=== PATIENT | male | born 1990 | race Caucasian/White ===

== ENCOUNTER 2018-06-11 17:21 | Emergency (ER) | payer OTHER | END 2018-06-11 19:28 | disposition home or self-care (01) | LOC: M ED 17:21 | DX: K08.89 Other specified disorders of teeth and supporting structures (principal); M54.9 Dorsalgia, unspecified; F42.9 Obsessive-compulsive disorder, unspecified; F17.210 Nicotine dependence, cigarettes, uncomplicated; Z88.2 Allergy status to sulfonamides; Z79.899 Other long term (current) drug therapy; Z79.2 Long term (current) use of antibiotics | CPT/HCPCS: 99283 ==

== ENCOUNTER 2018-07-13 10:10 | Emergency (ER) | payer OTHER | END 2018-07-13 11:21 | disposition home or self-care (01) | LOC: M ED 10:10 | DX: K02.9 Dental caries, unspecified (principal); F17.200 Nicotine dependence, unspecified, uncomplicated | CPT/HCPCS: 99283 ==

== ENCOUNTER 2018-07-18 16:56 | Emergency (ER) | payer OTHER | END 2018-07-18 17:44 | disposition home or self-care (01) | LOC: M ED 16:56 | DX: K08.89 Other specified disorders of teeth and supporting structures (principal); Z88.1 Allergy status to other antibiotic agents; Z88.2 Allergy status to sulfonamides; F17.210 Nicotine dependence, cigarettes, uncomplicated | CPT/HCPCS: 99282 ==

== ENCOUNTER 2018-08-10 10:57 | Emergency (ER) | payer OTHER | END 2018-08-10 13:23 | disposition home or self-care (01) | LOC: M ED 10:57 | DX: K08.89 Other specified disorders of teeth and supporting structures (principal); K02.9 Dental caries, unspecified; R68.84 Jaw pain; F17.200 Nicotine dependence, unspecified, uncomplicated; G89.29 Other chronic pain; Z88.2 Allergy status to sulfonamides; Z79.899 Other long term (current) drug therapy | CPT/HCPCS: 99283 ==

== ENCOUNTER → 2018-08-21 | Outpatient (CLI) | payer OTHER | LOC: M RAD 13:21 | DX: M51.36 Other intervertebral disc degeneration, lumbar region (principal); R93.7 Abnormal findings on diagnostic imaging of other parts of musculoskeletal system | CPT/HCPCS: 72148 ==

== ENCOUNTER 2019-04-14 11:38 | Emergency (ER) | payer OTHER ==
[~2019-04-14] VITALS: Ht 185.4 cm; Wt 77.9 kg
[2019-04-14 11:38] VITALS: BP 133/75
[~2019-04-14 11:38] MED LIST: ALPR0.5T3; AMOX500C; GABA-843; HYDR-3715 PO; IBUP-1022 PO; IBUP1TAB7 PO; MELO15TA28; METH-1022; PENI500T PO; PERC5TAB12 PO; TRAM50TA2; VICO5TAB16 PO
[2019-04-14] MEDS ORDERED: IBUP80TA PO (11:43)
[2019-04-14] MEDS ORDERED: EQ I1CAP PO (11:44)
[2019-04-14] MEDS ORDERED: PENI500T PO (12:35)
[2019-04-14] MEDS ORDERED: NAPR-837 PO (12:35)
== END 2019-04-14 12:59 | disposition home or self-care (01) ==
LOC: M ED 11:38
DX: K08.89 Other specified disorders of teeth and supporting structures (principal); G89.29 Other chronic pain; Z72.0 Tobacco use; Z88.2 Allergy status to sulfonamides

== ENCOUNTER → 2021-11-26 | Outpatient (CLI) | payer OTHER ==
[~2021-11-26] MED LIST changes: +GABA-282; -GABA-843; +IBUP200C89 PO; +IBUP80TA PO; +NAPR-837 PO
== END ==
LOC: M LAB 13:53
PROVIDERS: ATTEND Family Medicine
DX: M79.641 Pain in right hand (principal)